=== PATIENT | male | born 1965 | race Caucasian/White ===

== ENCOUNTER 2021-01-09 12:15 | Emergency (ER) | payer MEDICAID ==
[~2021-01-09] VITALS: Ht 152.4 cm; Wt 81.6 kg
--- NOTE | 2021-01-09 12:15 | NUR ---
Pt ALEE via gurney to bed 11.
--- NOTE | 2021-01-09 12:15 | NUR ---
PT TAKEN TO ER BED 11.
[2021-01-09 12:21] VITALS: BP 123/71
--- NOTE | 2021-01-09 12:26 | NUR ---
DR. REDDY AT PT BEDSIDE FOR FURTHER EVALUATION.
--- NOTE | 2021-01-09 12:36 | NUR ---
PT TAKEN TO CT AND XR VIA [facility].
[2021-01-09 13:37] VITALS: BP 128/78
--- NOTE | 2021-01-09 13:38 | NUR ---
Patient discharged with v/s stable. Written and verbal after care instructions given and explained. Patient verbalized understanding. Ambulatory with steady gait. All questions addressed prior to discharge. Advised to follow up with PMD.
== END 2021-01-09 13:37 | disposition home or self-care (01) ==
LOC: MED 12:15
DX: S20.211A Contusion of right front wall of thorax, initial encounter (principal); F10.10 Alcohol abuse, uncomplicated; W19.XXXA Unspecified fall, initial encounter; Y93.89 Activity, other specified; Y92.89 Other specified places as the place of occurrence of the external cause; Y99.8 Other external cause status
CPT/HCPCS: 70450; 71045; 99284; Q0092

== ENCOUNTER 2021-01-09 14:57 | Emergency (ER) | payer MEDICAID ==
[~2021-01-09] VITALS: Ht 180.3 cm; Wt 77.1 kg
--- NOTE | 2021-01-09 15:00 | NUR ---
PT AMBULATED TO BED 5
[2021-01-09 15:11] VITALS: BP 130/87
--- NOTE | 2021-01-09 15:35 | NUR ---
55 YO MALE BIBS C/O SI X TODAY. SEEN HERE THIS AM FOR FALL & RIGHT CHEST WALL PAIN & DISCHARGED. PATIENT STATED "I WANT TO KILL MYSELF BY WALKING INTO TRAFFIC". DENIES PREVIOUS SI ATTEMPTS. PATIENT STATES HE HAS NOT BEEN TAKING HIS MEDICATION FOR DEPRESSION. SKIN DRY AND INTACT, PLACED IN GOWN, ROOM SAFETY CHECK DONE, PERSONAL BELONGINGS REMOVED FROM ROOM, A&OX4, VSS. PMH: DENIES, DEPRESSION X2 YEARS MEDS: PROZAC AND NEURONTIN NKDA
--- NOTE | 2021-01-09 15:48 | NUR ---
IV ESTABLISHED TO LEFT HAND 20G, GOOD BLOOD RETURN, COLLECTED LABS. COLLECTED LUIS FERNANDO GRIFFIN, AND LUIS FERNANDO OROZCO WALKED TO LAB.
--- NOTE | 2021-01-09 15:55 | NUR ---
PT STATES HE IS UNABLE TO PROVIDE UA SAMPLE AT THIS TIME, PROVIDED WATER AND URINAL AT THIS TIME.
[2021-01-09 16:05] LABS: BASOPHILS # (AUTO) 0.1 K/uL (0.00-0.22); BASOPHILS % (AUTO) 0.5 % (0.0-2.0); EOSINOPHILS # (AUTO) 0.2 K/uL (0-0.4); EOSINOPHILS % (AUTO) 1.1 % (0.0-4.0); HEMATOCRIT 41.8 % (36-52); LYMPHOCYTES # (AUTO) 6.3 K/uL (2.0-11.5); LYMPHOCYTES % (AUTO) 40.2 % (20.5-51.1); MEAN CORPUSCULAR HEMOGLOBIN 31 pg (27-31); MEAN CORPUSCULAR HGB CONC 34 g/dL (33-37); MEAN CORPUSCULAR VOLUME 93.6 fL (80-94); MONOCYTES # (AUTO) 0.7 K/uL (0.8-1.0); MONOCYTES % (AUTO) 4.5 % (1.7-9.3); NEUTROPHILS # (AUTO) 8.4 K/uL (1.8-7.7); NEUTROPHILS % (AUTO) 53.7 % (42.2-75.2); PLATELET COUNT (AUTO) 290 K/uL (140-450); RED BLOOD CELL COUNT(AUTO) 4.47 MIL/uL (4.20-6.10); RED CELL DISTRIBUTION WIDTH 14.2 % (11.6-13.7); WHITE BLOOD COUNT (AUTO) 15.6 K/uL (4.8-10.8)
--- NOTE | 2021-01-09 16:15 | NUR ---
PT BEING EVALUATED BY PSYCHIATRIST VIA TELEPSYCH
[2021-01-09 16:27] LABS: ANION GAP 15.3 (8-16); CARBON DIOXIDE 25.8 mmol/L (21-32); CREATININE 0.9 mg/dL (0.6-1.3); POTASSIUM 3.1 mmol/L (3.5-5.1); TOTAL BILIRUBIN 0.2 mg/dL (0.0-1.0)
--- NOTE | 2021-01-09 17:48 | NUR ---
URINAL AT BEDSIDE PATIENT ENCOURAGED TO PROVIDE SAMPLE, STATES UNABLE TO AT THIS TIME.
--- NOTE | 2021-01-09 17:48 | NUR ---
PATIENT IV DISCONTINUED, PATIENT DENIES PULLING IT OUT.
--- NOTE | 2021-01-09 18:39 | NUR ---
PATIENT RESTING AT THIS TIME, VSS.
--- NOTE | 2021-01-09 19:23 | NUR ---
RECIVED REPORT FROM [place] CRANDALL. TRANSFER OF CARE.
--- NOTE | 2021-01-09 19:24 | NUR ---
REPORT AND CONTINUATION OF CARE GIVEN TO RAZ MADDEN.
--- NOTE | 2021-01-09 19:36 | NUR ---
PATIENT RESTING IN BED WITH EYES CLOSED. RESPOSNSIVE TO TOUCH. PATIENT ORIENTED X4. PATIENT UNCOOPERATIVE WITH ASSESSMENT. WITHDRAWN WITH INFORMATION AND UNWILLING TO GIVE INFORMATION ABOUT SI. PATIENT GIVEN BLANKET AND RESTING IN BED. BED IS LOCKED AND IN LOWEST POSTION. PATIENT STATES," I'M NOT GIVING YOU ANY URINE RIGHT NOW, I JUST WANT TO SLEEP, [facility] GUYS NEED TO STOP ASKING IT FROM ME."
--- NOTE | 2021-01-09 22:53 | NUR ---
PATIENT STATES UNABLE TO GIVE URINE AT THIS TIME. ERMD MADE AWARE. VSS.
--- NOTE | 2021-01-10 00:42 | NUR ---
Patient appears to be resting comfortably in bed. Vital Signs within normal limits. Respirations even and unlabored.
--- NOTE | 2021-01-10 03:26 | NUR ---
CARLOS CONTINUES TO STATE HE CANNOT GIVE URINE SAMPLE AT THIS TIME. PATIENT STATES HAD NO NEED OR FEELING TO GIVE URINE. "I'M NOT GIVING YOU SHIT RIGHT NOW, I'LL GIVE YOU URINE WHEN I FUCKING WANT TO."
--- NOTE | 2021-01-10 05:09 | NUR ---
PATIENT STATES, "I WANT TO LEAVE ALREADY, GIVE ME MY STUFF." JENISED MADE AWARE OF PATIENT'S STATEMENTS. CAROL ASKED FOR PATIETN TO BE RE-EVALUATED TO HAVE ANOTHER TELEPSYCH CONSULTATION.
--- NOTE | 2021-01-10 05:16 | NUR ---
PATIENT AMBULATED TO RESTROOM WITH STEADY GAIT. EXPLAINED TO PATIENT THAT UA SAMPLE IS NEEDED AND ORDERED BY ERMD. PATIENT STATES,"I'M NEVER GIVING YOU ANY OF MY PEE SO STOP ASKING ME."
--- NOTE | 2021-01-10 05:28 | NUR ---
Dr. Santizo examining patient.
--- NOTE | 2021-01-10 06:10 | NUR ---
PATIENT LEFT THE ER
[2021-01-10 06:12] VITALS: BP 132/76
--- NOTE | 2021-01-10 06:12 | NUR ---
PATIENT ELOPED FROM FACILITY. DISCHARGE INSTRUCTIONS NOT GIVEN TO PATIENT. DR. KAT NOTIFIED.
--- NOTE | 2021-01-10 06:12 | NUR ---
SPOKE WITH [place] [employer]PATCH AND GAVE NAME, , AND DESCRIPTION OF PATIENT. NOTIFIED DISPATCH THAT PATIENT EXPRESSED SI UPON ARRIVAL BUT WAS NOT PLACED ON HOLD. PATIENT WAS STATING HE IS NO LONGER HAVING SI. PATIENT REFUSED TO STAY AND WALKED OUT OF ER.
== END 2021-01-10 06:12 | disposition left against medical advice (07) ==
LOC: MED 14:57
DX: T51.0X1A Toxic effect of ethanol, accidental (unintentional), initial encounter (principal); R45.851 Suicidal ideations; Y92.89 Other specified places as the place of occurrence of the external cause; Z20.822 Contact with and (suspected) exposure to COVID-19
CPT/HCPCS: 80053; 85025; 87426; 93005; 99285; G0482; U0003